=== PATIENT | male | born 1945 | race Caucasian/White ===

== ENCOUNTER 2017-01-11 19:29 | Emergency (ER) | payer MEDICARE ==
--- NOTE | 2017-01-11 20:15 | Emergency Department Record ---
History of Present Illness - General Chief Complaint: Laceration(s) Stated Complaint: LAC ON INSIDE OF R ARM Time Seen by Provider: 01/11/17 20:15 Source: Patient Mode of Arrival: Ambulatory Limitations: No limitations - History of Present Illness Initial Commments: The patient cut his R arm about 2 hours ago with an electrical saw. He denies any numbness or tingling or hand weakness. His Td is not UTD. Onset/Timin -: Hour(s) Place: Outdoors Context: Accidental Associated Symptoms: None Treatments Prior to Arrival: Bandage - Related Data Patient Tetanus UTD (within 5 yrs): No Home Medications Medication Instructions Recorded Confirmed Last Taken Pramipexole Di-HCl [Mirapex] 0.5 mg PO QHS tab 10/02/15 01/11/17 01/11/17 Tamsulosin HCl [Flomax] 0.4 mg PO QHS 10/02/15 01/11/17 01/11/17 Previous Rx's Medication Instructions Recorded Cephalexin [Keflex] 500 mg PO QID #28 cap 01/11/17 Hydrocodone/Acetaminophen [[place] 1 - 2 each PO QID #10 tablet 01/11/17 5-325 Tablet] Allergies Allergy/AdvReac Type Severity Reaction Status Date / Time No Known Drug Allergies Allergy Verified 01/11/17 20:09 Travel Screening - Travel/Exposure Within Last 30 Days Have you traveled within the last 30 days?: No - Travel Symptoms Symptom Screening: None Past Medical History - SOCIAL HISTORY Smoking Status: Never smoker - RESPIRATORY Hx Respiratory Disorders: Yes Hx Bronchitis: Yes Hx Sleep Apnea: Yes Hx of CPAP: Yes (uses on and off) - CARDIOVASCULAR Hx Cardio Disorders: No - NEURO Hx Neuro Disorders: No - GI Hx GI Disorders: Yes Hx Abdominal Pain: Yes (at times associated with hernia) - Hx Genitourinary Disorders: Yes Hx Bladder Problem: Yes (freq urination) Hx Prostate Problems: Yes (enlarged prostate) - ENDOCRINE Hx Endocrine Disorders: No - MUSCULOSKELETAL Hx Musculoskeletal Disorders: Yes Hx Arthritis: Yes - PSYCH Hx Psych Problems: No - HEMATOLOGY/ONCOLOGY Hx Hematology/Oncology Disorders: No Family Medical History Any Significant Family History?: Yes Hx Cancer: Mother Hx Diabetes: Mother Hx HTN: Father Physical Exam - General General Appearance: Alert, Cooperative, No acute distress - Head Head exam: Atraumatic, Normocephalic, Normal inspection - Eye Eye exam: Normal appearance, PERRL - Extremities Extremities exam: Other (The R arm and hand are NVI with normal pulses, sensation, and motor function.). negative: Normal inspection (There is a 12.5 cm lac to the distal R arm just above the elbow lat epicondyle. The lac appears to be cut obliquely and is not down to the muscle.) Image of Full Body: 1 - 12.5 cm lac. Course Vital Signs 01/11/17 20:10 Temperature 98.6 F Pulse Rate 78 Respiratory 16 Rate Blood Pressure 165/97 Pulse Ox 96 - Reevaluation(s) Reevaluation #1: Procedure note: The R arm lac was anesth. with 10 CC's [place] 1% with Epi. The wound edges were debrided extensively and the wound did have multiple shirt fibers removed. The wound was explored and was deep but superficially cut obliquely and not down to muscle, tendon, or bone. The lac was then lavaged with sterile saline copiously and explored. No more FB's were seen. The lac was then closed with 15 3.0 Prolene sutures. 01/11/17 21:37 01/11/17 21:45 01/11/17 21:46 Reevaluation #2: I did discuss the issues with the patient. Any wound of this size with the extent of the contamination is fairly infection prone. He is to watch for signs of infection and return to the ER for any problems. 01/11/17 21:45 Disposition Disposition: Discharge Clinical Impression: Laceration of arm Qualifiers: Encounter type: initial encounter Laterality: right Qualified Code(s): S41.111A - Laceration without foreign body of right upper arm, initial encounter Disposition: Home, Self-Care Condition: (1) Good Instructions: Laceration (ED) Additional Instructions: Keep dry for 2 days then no soaking. Watch for signs of infection. Take Tylenol or Motrin for pain and may also use [place]. Take the Keflex for 7 days. Have the sutures removed in 14 days. Prescriptions: Cephalexin [Keflex] 500 mg PO QID #28 cap Hydrocodone/Acetaminophen [[place] 5-325 Tablet] 1 - 2 each PO QID #10 tablet Forms: Patient Portal Access Time of Disposition: 21:27
[2017-01-11] MEDS ORDERED: CEPHALEXIN 500 MG CAPSULE PO STA (20:18)
[2017-01-11] MEDS ORDERED: Diph,Pert(Acell),Tet Vac 0.5 ML SYR IM ONE (20:18)
[2017-01-11] MEDS ORDERED: HYDROCODONE/APAP 5/325MG TABLET PO ONE ×2 (20:29→21:25)
== END 2017-01-11 21:44 | disposition home or self-care (01) ==
LOC: ER 19:29
DX: S41.121A Laceration with foreign body of right upper arm, initial encounter (principal); W31.2XXA Contact with powered woodworking and forming machines, initial encounter; Y92.89 Other specified places as the place of occurrence of the external cause
CPT/HCPCS: 12034; 90715; 96372; 99284

== ENCOUNTER 2017-01-26 08:22 | Emergency (ER) | payer MEDICARE ==
--- NOTE | 2017-01-26 08:33 | Emergency Department Record ---
History of Present Illness - General Chief Complaint: Suture removal Stated Complaint: SUTURE REMOVAL Time Seen by Provider: 01/26/17 08:32 Source: Patient Mode of arrival: Ambulatory Limitations: No limitations - History of Present Illness Initial Comments: 71 yo male presents to ED for evaluation for suture removal from healing laceration repair to the the right upper extremity. Patient reports that the injury occurred 15 days ago, denies fevers, chills, redness, or drainage from the wound. Patient reports that his wound has been healing well. MD Complaint: Suture/staple removal Onset/Timin -: Week(s) Initial Visit For: Laceration Returns Today for: Staple/stitch removal Symptoms Since Prior Visit: No new symptoms Associated Symptoms: None - Related Data Home Medications Medication Instructions Recorded Confirmed Last Taken Pramipexole Di-HCl [Mirapex] 0.5 mg PO QHS tab 10/02/15 01/26/17 01/25/17 Tamsulosin HCl [Flomax] 0.4 mg PO QHS 10/02/15 01/26/17 01/25/17 Previous Rx's Medication Instructions Recorded Hydrocodone/Acetaminophen [[place] 1 - 2 each PO QID #10 tablet 01/11/17 5-325 Tablet] Allergies Allergy/AdvReac Type Severity Reaction Status Date / Time No Known Drug Allergies Allergy Verified 01/11/17 20:09 Travel Screening - Travel/Exposure Within Last 30 Days Have you traveled within the last 30 days?: No - Travel/Exposure Within Last Year Have you traveled outside the [place] in the last year?: No - Additonal Travel Details Have you been exposed to anyone with a communicable illness?: No - Travel Symptoms Symptom Screening: None Review of Systems Constitutional: Denies: Chills, Fever, Malaise, Night sweats Eyes: Denies: Eye discharge, Eye pain ENT: Denies: Congestion, Ear pain, Epistaxis Respiratory: Denies: Cough, Dyspnea Cardiovascular: Denies: Chest pain, Dyspnea on exertion Endocrine: Denies: Fatigue, Heat or cold intolerance Gastrointestinal: Denies: Abdominal pain, Nausea, Vomiting Genitourinary: Denies: Incontinence, Retention Musculoskeletal: Denies: Arthralgia, Back pain, Gout, Joint swelling Skin: Denies: Bruising, Change in color Neurological: Denies: Abnormal gait, Confusion, Headache, Seizure Psychiatric: Denies: Anxiety Hematological/Lymphatic: Denies: Anemia, Blood Clots Past Medical History - SOCIAL HISTORY Smoking Status: Never smoker - RESPIRATORY Hx Respiratory Disorders: Yes Hx Bronchitis: Yes Hx Sleep Apnea: Yes Hx of CPAP: Yes (uses on and off) - CARDIOVASCULAR Hx Cardio Disorders: No - NEURO Hx Neuro Disorders: No - GI Hx GI Disorders: Yes Hx Abdominal Pain: Yes (at times associated with hernia) - Hx Genitourinary Disorders: Yes Hx Bladder Problem: Yes (freq urination) Hx Prostate Problems: Yes (enlarged prostate) - ENDOCRINE Hx Endocrine Disorders: No - MUSCULOSKELETAL Hx Musculoskeletal Disorders: Yes Hx Arthritis: Yes - PSYCH Hx Psych Problems: No - HEMATOLOGY/ONCOLOGY Hx Hematology/Oncology Disorders: No Family Medical History Any Significant Family History?: No Hx Cancer: Mother Hx Diabetes: Mother Hx HTN: Father Physical Exam - General General Appearance: Alert, Oriented x3, Cooperative, No acute distress Limitations: No limitations - Head Head exam: Atraumatic, Normocephalic, Normal inspection Head exam detail: negative: Abrasion, Contusion, Brush's sign, General tenderness, Hematoma, Laceration - Eye Eye exam: Normal appearance. negative: Conjunctival injection, Periorbital swelling, Periorbital tenderness, Scleral icterus - ENT Ear exam: negative: Auricular hematoma, Auricular trauma Nasal Exam: negative: Active bleeding, Discharge, Dried blood, Foreign body Mouth exam: negative: Drooling, Laceration, Muffled voice, Tongue elevation - Neck Neck exam: Normal inspection. negative: Meningismus, Tenderness - Respiratory Respiratory exam: Normal lung sounds bilaterally. negative: Rales, Respiratory distress, Rhonchi, Stridor - Cardiovascular Cardiovascular Exam: Regular rate, Normal rhythm, Normal heart sounds - GI/Abdominal GI/Abdominal exam: Soft. negative: Rebound, Rigid, Tenderness - Rectal Rectal exam: Deferred - exam: Deferred - Extremities Extremities exam: Other (healing laceration to the right distal arm to extending to the proximal forearm, no signs of infection on examination). negative: Calf tenderness, Pedal edema, Tenderness - Back Back exam: Denies: CVA tenderness (R), CVA tenderness (L) - Neurological Neurological exam: Alert, Normal gait, Oriented X3 - Psychiatric Psychiatric exam: Normal affect, Normal mood - Skin Skin exam: Normal color. negative: Abrasion Type of lesion: negative: abrasion Course Vital Signs 05/23/17 08:24 Temperature 97.9 F Pulse Rate 60 Respiratory 16 Rate Blood Pressure 149/72 Pulse Ox 98 - Reevaluation(s) Reevaluation #1: 01/26/17 08:37 Wound was evaluated, no evidence for infection on examination. (4) sutures distally and (4) sutures proximally were removed as the wound appears well healed to this area. The midsection of the wound however has not had sufficient time to heal completed, therefore (7) sutures are being left in place with instructions to return in 5-7 days for removal. Patient agrees with plan as discussed and appears stable for discharge at this time. Disposition Disposition: Discharge Clinical Impression: Visit for suture removal Disposition: Home, Self-Care Condition: (2) Stable Instructions: Suture Removal (ED) Additional Instructions: Return to ED if your symptoms worsen or if you have any concerns. Return to ED in 5-7 days for the remainder of your sutures to be removed. Forms: Patient Portal Access Time of Disposition: 08:33
== END 2017-01-26 08:38 | disposition home or self-care (01) ==
LOC: ER 08:22
DX: Z48.02 Encounter for removal of sutures (principal)

== ENCOUNTER 2017-02-02 08:34 | Emergency (ER) | payer MEDICARE ==
--- NOTE | 2017-02-02 08:42 | Emergency Department Record ---
History of Present Illness - General Chief Complaint: Suture removal Stated Complaint: SUTURE REMOVAL Time Seen by Provider: 02/02/17 08:41 Source: Patient Mode of arrival: Ambulatory Limitations: No limitations - History of Present Illness Initial Comments: 71 yo male returns to ED for further removal of remaining sutures which have now been present for 3 weeks. Patient was seen for 2 weeks following injury, 8 sutures were removed at that time, however seven were left [address] due to the risk of wound dehiscence. Patient denies drainage from the wound, fevers, chills, or worsening of his symptoms. MD Complaint: Suture/staple removal Onset/Timin -: Week(s) Initial Visit For: Laceration Returns Today for: Staple/stitch removal Symptoms Since Prior Visit: No new symptoms Associated Symptoms: None - Related Data Home Medications Medication Instructions Recorded Confirmed Last Taken Pramipexole Di-HCl [Mirapex] 0.5 mg PO QHS tab 10/02/15 02/02/17 02/01/17 Tamsulosin HCl [Flomax] 0.4 mg PO QHS 10/02/15 02/02/17 02/02/17 Cholecalciferol (Vitamin D3) 1 tab PO DAILY 02/02/17 02/02/17 02/02/17 [Vitamin D3] Previous Rx's Medication Instructions Recorded Hydrocodone/Acetaminophen [[place] 1 - 2 each PO QID #10 tablet 01/11/17 5-325 Tablet] Allergies Allergy/AdvReac Type Severity Reaction Status Date / Time No Known Drug Allergies Allergy Verified 02/02/17 08:37 Review of Systems Constitutional: Denies: Chills, Fever, Malaise, Night sweats Eyes: Denies: Eye discharge, Eye pain ENT: Denies: Congestion, Ear pain, Epistaxis Respiratory: Denies: Cough, Dyspnea Cardiovascular: Denies: Chest pain, Dyspnea on exertion Endocrine: Denies: Fatigue, Heat or cold intolerance Gastrointestinal: Denies: Abdominal pain, Nausea, Vomiting Genitourinary: Denies: Incontinence, Retention Musculoskeletal: Denies: Arthralgia, Back pain, Gout, Joint swelling Skin: Denies: Bruising, Change in color Neurological: Denies: Abnormal gait, Confusion, Headache, Seizure Psychiatric: Denies: Anxiety Hematological/Lymphatic: Denies: Anemia, Blood Clots Past Medical History - SOCIAL HISTORY Smoking Status: Never smoker - RESPIRATORY Hx Respiratory Disorders: Yes Hx Bronchitis: Yes Hx Sleep Apnea: Yes Hx of CPAP: Yes (uses on and off) - CARDIOVASCULAR Hx Cardio Disorders: No - NEURO Hx Neuro Disorders: No - GI Hx GI Disorders: Yes Hx Abdominal Pain: Yes (at times associated with hernia) - Hx Genitourinary Disorders: Yes Hx Bladder Problem: Yes (freq urination) Hx Prostate Problems: Yes (enlarged prostate) - ENDOCRINE Hx Endocrine Disorders: No - MUSCULOSKELETAL Hx Musculoskeletal Disorders: Yes Hx Arthritis: Yes - PSYCH Hx Psych Problems: No - HEMATOLOGY/ONCOLOGY Hx Hematology/Oncology Disorders: No Family Medical History Hx Cancer: Mother Hx Diabetes: Mother Hx HTN: Father Physical Exam - General General Appearance: Alert, Oriented x3, Cooperative, No acute distress Limitations: No limitations - Head Head exam: Atraumatic, Normocephalic, Normal inspection Head exam detail: negative: Abrasion, Contusion, Brush's sign, General tenderness, Hematoma, Laceration - Eye Eye exam: Normal appearance. negative: Conjunctival injection, Periorbital swelling, Periorbital tenderness, Scleral icterus - ENT Ear exam: negative: Auricular hematoma, Auricular trauma Nasal Exam: negative: Active bleeding, Discharge, Dried blood, Foreign body Mouth exam: negative: Drooling, Laceration, Muffled voice, Tongue elevation - Neck Neck exam: Normal inspection. negative: Meningismus, Tenderness - Respiratory Respiratory exam: Normal lung sounds bilaterally. negative: Rales, Respiratory distress, Rhonchi, Stridor - Cardiovascular Cardiovascular Exam: Regular rate, Normal rhythm, Normal heart sounds - GI/Abdominal GI/Abdominal exam: Soft. negative: Rebound, Rigid, Tenderness - Rectal Rectal exam: Deferred - exam: Deferred - Extremities Extremities exam: Other (Well-healed laceration to the right forearm). negative : Calf tenderness, Pedal edema, Tenderness - Back Back exam: Denies: CVA tenderness (R), CVA tenderness (L) - Neurological Neurological exam: Alert, Normal gait, Oriented X3 - Psychiatric Psychiatric exam: Normal affect, Normal mood - Skin Skin exam: Normal color. negative: Abrasion Type of lesion: negative: abrasion Course - Reevaluation(s) Reevaluation #1: 02/02/17 08:46 Procedure Note: remaining (7) sutures were removed from right UE wound without complications. Steri-strips applied to the center of the wound to prevent early dehiscence of the wound. Patient tolerated the procedure well without complications. Disposition Disposition: Discharge Clinical Impression: Visit for suture removal Disposition: Home, Self-Care Condition: (2) Stable Instructions: Stitches Removal (ED) Additional Instructions: Return to ED if your symptoms worsen or if you have any concerns. Follow-up with your family doctor in 1 week as needed. Forms: Patient Portal Access Time of Disposition: 08:42
== END 2017-02-02 08:50 | disposition home or self-care (01) ==
LOC: ER 08:34
DX: Z48.02 Encounter for removal of sutures (principal)

== ENCOUNTER 2017-03-26 19:38 | Emergency (ER) | payer MEDICARE ==
--- NOTE | 2017-03-26 20:13 | Emergency Department Record ---
History of Present Illness - General Chief Complaint: General Stated Complaint: RT HAND INJURY Time Seen by Provider: 03/26/17 20:02 Source: Patient Mode of Arrival: Ambulatory Limitations: No limitations - History of Present Illness Initial Comments: 71 yo male presents to ED for evaluation of injury to the right hand 1-hour [employer]. Patient reports that his hand was caught between a loader operator and wall resulting in crush-type injury. Patient reports FROM to the hand on examination , denies numbness or tingling, reports only a dull ache on exam. Patient denies other injury, and denies health problems at his baseline. Complaint: Injury to:: Right Onset/Timin -: Hour(s) Other Extremity Injury: Wrist: Right, Hand: Right Other Injuries: RLE Handedness: Right Place: Home Improves With: None Worsens With: Movement of extremity Context: Crush Associated Symptoms: Denies other symptoms - Related Data Home Medications Medication Instructions Recorded Confirmed Last Taken Pramipexole Di-HCl [Mirapex] 0.5 mg PO QHS tab 10/02/15 03/26/17 03/25/17 Tamsulosin HCl [Flomax] 0.4 mg PO QHS 10/02/15 03/26/17 03/25/17 Cholecalciferol (Vitamin D3) 1 tab PO DAILY 02/02/17 03/26/17 03/25/17 [Vitamin D3] Allergies Allergy/AdvReac Type Severity Reaction Status Date / Time No Known Drug Allergies Allergy Verified 02/02/17 08:37 Travel Screening - Travel/Exposure Within Last 30 Days Have you traveled within the last 30 days?: No - Travel/Exposure Within Last Year Have you traveled outside the [place] in the last year?: No - Additonal Travel Details Have you been exposed to anyone with a communicable illness?: No - Travel Symptoms Symptom Screening: None Review of Systems Constitutional: Denies: Chills, Fever, Malaise, Night sweats Eyes: Denies: Eye discharge, Eye pain ENT: Denies: Congestion, Ear pain, Epistaxis Respiratory: Denies: Cough, Dyspnea Cardiovascular: Denies: Chest pain, Dyspnea on exertion Endocrine: Denies: Fatigue, Heat or cold intolerance Gastrointestinal: Denies: Abdominal pain, Nausea, Vomiting Genitourinary: Denies: Incontinence, Retention Musculoskeletal: Reports: Arthralgia. Denies: Back pain, Gout, Joint swelling Skin: Denies: Bruising, Change in color Neurological: Denies: Abnormal gait, Confusion, Headache, Seizure Psychiatric: Denies: Anxiety Hematological/Lymphatic: Denies: Anemia, Blood Clots Past Medical History - SOCIAL HISTORY Smoking Status: Never smoker Alcohol Use: None Drug Use: None - RESPIRATORY Hx Respiratory Disorders: Yes Hx Bronchitis: Yes Hx Sleep Apnea: Yes Hx of CPAP: Yes (uses on and off) - CARDIOVASCULAR Hx Cardio Disorders: No - NEURO Hx Neuro Disorders: No - GI Hx GI Disorders: Yes Hx Abdominal Pain: Yes (at times associated with hernia) - Hx Genitourinary Disorders: Yes Hx Bladder Problem: Yes (freq urination) Hx Prostate Problems: Yes (enlarged prostate) - ENDOCRINE Hx Endocrine Disorders: No - MUSCULOSKELETAL Hx Musculoskeletal Disorders: Yes Hx Arthritis: Yes - PSYCH Hx Psych Problems: No - HEMATOLOGY/ONCOLOGY Hx Hematology/Oncology Disorders: No Family Medical History Any Significant Family History?: No Hx Cancer: Mother Hx Diabetes: Mother Hx HTN: Father Physical Exam - General General Appearance: Alert, Oriented x3, Cooperative, Mild distress Limitations: No limitations - Head Head exam: Atraumatic, Normocephalic, Normal inspection Head exam detail: negative: Abrasion, Contusion, Brush's sign, General tenderness, Hematoma, Laceration - Eye Eye exam: Normal appearance. negative: Conjunctival injection, Periorbital swelling, Periorbital tenderness, Scleral icterus - ENT Ear exam: negative: Auricular hematoma, Auricular trauma Nasal Exam: negative: Active bleeding, Discharge, Dried blood, Foreign body Mouth exam: negative: Drooling, Laceration, Muffled voice, Tongue elevation - Neck Neck exam: Normal inspection. negative: Meningismus, Tenderness - Respiratory Respiratory exam: Normal lung sounds bilaterally. negative: Rales, Respiratory distress, Rhonchi, Stridor - Cardiovascular Cardiovascular Exam: Regular rate, Normal rhythm, Normal heart sounds Peripheral Pulses: 3+: Radial (R) - GI/Abdominal GI/Abdominal exam: Soft. negative: Rebound, Rigid, Tenderness - Rectal Rectal exam: Deferred - exam: Deferred - Extremities Extremities exam: Full ROM, Tenderness, Other (Mild TTP to the hand dorsally, FROM on examination, no obvious fracture or dislocation on examination). negative: Calf tenderness, Pedal edema - Back Back exam: Denies: CVA tenderness (R), CVA tenderness (L) - Neurological Neurological exam: Alert, Normal gait, Oriented X3 - Psychiatric Psychiatric exam: Normal affect, Normal mood - Skin Skin exam: Normal color. negative: Abrasion Type of lesion: negative: abrasion Course Vital Signs 03/26/17 03/26/17 19:43 19:52 Temperature 97.8 F 97.8 F Pulse Rate [ 75 Pulse Ox Probe] Respiratory 22 20 Rate Blood Pressure 176/98 [Left Arm] Pulse Ox 95 - Reevaluation(s) Reevaluation #1: 03/26/17 20:53 Right hand: No acute fracture Right wrist: No acute fracture present Patient was updated on all results, will administer a Velcro wrist splint for support of the hand. Patient agrees with the plan of care as discussed and appears stable for discharge at this time. Disposition Disposition: Discharge Clinical Impression: Hand contusion Qualifiers: Encounter type: initial encounter Laterality: right Qualified Code(s): S60.221A - Contusion of right hand, initial encounter Disposition: Home, Self-Care Condition: (2) Stable Instructions: Contusion in Adults (ED) Additional Instructions: Return to ED if your symptoms worsen or if you have any concerns. Wrist splint as directed for support. Follow-up with your family doctor in 5-7 days for further evaluation of your wrist injury. Ibuprofen as needed for pain symptoms. Forms: Patient Portal Access Time of Disposition: 20:56 Quality - Quality Measures Quality Measures: N/A - Blood Pressure Screening Blood Pressure Classification: Hypertensive Reading Systolic Measurement: 167 Diastolic Measurement: 91 Screening for High Blood Pressure: < First Hypertensive BP, F/U Documented > [ [id number]] First Hypertensive Follow-up Interventions: Referral to alternative/primary care provider.
--- NOTE | 2017-03-29 10:30 | RADIOLOGY REPORT ---
EXAM: RIGHT WRIST HISTORY: INJURY. TECHNIQUE: Four views of the right wrist were performed. FINDINGS: No evidence of acute fracture. Remote fracture deformity of the ulnar styloid. IMPRESSION: 1. NO EVIDENCE OF ACUTE FRACTURE. 2. REMOTE FRACTURE DEFORMITY OF THE ULNAR STYLOID. JOB NUMBER: [id number] MTDD
--- NOTE | 2017-03-29 10:32 | RADIOLOGY REPORT ---
EXAM: RIGHT HAND HISTORY: INJURY. TECHNIQUE: Three views of the right hand were performed. FINDINGS: No evidence of acute fracture or dislocation. There is remote fracture deformity of the ulnar styloid. IMPRESSION: REMOTE ULNAR FRACTURE DEFORMITY OF THE ULNAR STYLOID. THE REMAINDER OF THE EXAMINATION IS UNREMARKABLE. JOB NUMBER: [id number] MTDD
== END 2017-03-26 21:19 | disposition home or self-care (01) ==
LOC: ER 19:38
DX: S60.221A Contusion of right hand, initial encounter (principal); M25.531 Pain in right wrist; W23.0XXA Caught, crushed, jammed, or pinched between moving objects, initial encounter; Y92.009 Unspecified place in unspecified non-institutional (private) residence as the place of occurrence of the external cause
CPT/HCPCS: 99283

== ENCOUNTER 2018-07-22 12:24 | Emergency (ER) | payer MEDICARE ==
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
[2018-07-22 12:44] LABS: BASO % 0.6 % (0-6); EOS % 5.7 % (0-6); GRAN % 49.7 % (47-80); HEMATOCRIT 42.6 % (42.0-52.0); HEMOGLOBIN 14.2 gm/dl (14.0-18.0); LYMPH % 36.3 % (16-45); MEAN CELL VOLUME 90.8 fl (81-97); MEAN CORPUSCULAR HEMOGLOBIN 30.3 pg (27-33); MEAN CORPUSCULAR HGB CONC 33.3 g/dl (32-36); MEAN PLATELET VOLUME 10.2 fl (7.4-10.4); MONO % 7.7 % (0-9); PLATELET COUNT 272 K/uL (130-400); RED BLOOD COUNT 4.69 M/uL (4.40-5.70); RED CELL DISTRIBUTION WIDTH 12.8 % (11.5-14.5); WHITE BLOOD COUNT W/O DIFF 5.4 K/uL (4.2-12.2)
[2018-07-22 12:55] LABS: BLOOD UREA NITROGEN 24 mg/dL (8-23); EST GLOMERULAR FILTRATION RATE > 60 mL/min
[2018-07-22 12:56] LABS: TOTAL PROTEIN 7.2 g/dL (6.6-8.7)
[2018-07-22 12:58] LABS: GLUCOSE,RANDOM 92 mg/dL (74-109); PARTIAL THROMBOPLASTIN TIME 26.8 SECONDS (24.5-39.1); PROTHROMBIN TIME (PATIENT) 10.1 SECONDS (9.5-12.1)
[2018-07-22 13:00] LABS: ALBUMIN 4.3 g/dL (4.0-5.0); ALT/SGPT 15 U/L (<41); AST/SGOT 17 U/L (10.0-50.0)
[2018-07-22 13:01] LABS: ALB/GLOB RATIO 1.5 (1.1-1.8); ALKALINE PHOSPHATASE 48 U/L (40-129)
[2018-07-22 13:11] LABS: THYROID STIMULATING HORMONE 3.04 uIU/mL (0.270-4.20)
[2018-07-22] MEDS ORDERED: ASPIRIN 81 MG CHEWABLE TABLET PO ONE (14:27)
--- NOTE | 2018-07-23 21:18 | CT SCAN REPORT ---
EXAM: CT SCAN HEAD WO CONTRAST HISTORY: WEAKNESS, SLURRED SPEECH. TECHNIQUE: Axial CT scan of the head performed without IV contrast. COMPARISON: None. FINDINGS: No definite acute intracranial hemorrhage identified. No definite acute infarct or intracranial mass lesion is seen. No focal mass effect or midline shift evident. Mild generalized atrophy. Moderate membrane thickening in the ethmoids bilaterally. IMPRESSION: 1. MILD GENERALIZED ATROPHY. 2. NO DEFINITE ACUTE INTRACRANIAL HEMORRHAGE OR FOCAL MASS EFFECT IDENTIFIED. 3. MEMBRANE THICKENING IN THE ETHMOIDS. JOB NUMBER: [id number] [facility]
== END 2018-07-22 15:23 | disposition short-term general hospital (02) ==
LOC: ER 12:24
DX: G45.9 Transient cerebral ischemic attack, unspecified (principal); R53.1 Weakness; R47.81 Slurred speech; I10 Essential (primary) hypertension
CPT/HCPCS: 70450; 80053; 84443; 84484; 85025; 85610; 85730; 93005; 93010; 99285

== ENCOUNTER 2018-12-22 17:27 | Emergency (ER) | payer MEDICARE ==
[2018-12-22] MEDS ORDERED: IBUPROFEN 600 MG TABLET PO ONE (17:57)
--- NOTE | 2018-12-22 18:03 | Emergency Department Record ---
History of Present Illness - General Chief complaint: Lower Extremity Pain Stated complaint: LEFT KNEE PAIN Time Seen by Provider: 12/22/18 17:51 Source: Patient Mode of Arrival: Ambulatory Limitations: No limitations - History of Present Illness Initial comments: 73 yo male presents to ED for evaluation of left knee pain that occurred approximately 1.5 hours ago. Patient reports that he was walking when he suddenly felt a "pop" associated with pain to the left medial knee, reports pain with weight bearing. Patient reports a history of knee problems, has seen Dr. Ybarra previously but has been delaying knee replacement for his chronic arthritis. Patient reports taking (3) Tylenol tablets prior to arrival that has not helped his pain symptoms significantly. MD Complaint: Joint pain Onset/Timin -: Hour(s) Location: Left, Knee History of Same: No Radiation: Proximal, Distal Severity scale (1-10): 10 Quality: Aching Consistency: Constant Improves with: Nothing Worsens with: Weight bearing Associated Symptoms: Denies other symptoms - Related Data Previous Rx's Medication Instructions Recorded Ibuprofen [Motrin 600Mg] 600 mg PO Q6H PRN #30 tablet 12/22/18 Allergies Allergy/AdvReac Type Severity Reaction Status Date / Time No Known Drug Allergies Allergy Verified 12/22/18 17:35 Travel Screening - Travel/Exposure Within Last 30 Days Have you traveled within the last 30 days?: No Review of Systems Constitutional: Denies: Chills, Fever, Malaise, Night sweats Eyes: Denies: Eye discharge, Eye pain ENT: Denies: Congestion, Ear pain, Epistaxis Respiratory: Denies: Cough, Dyspnea Cardiovascular: Denies: Chest pain, Dyspnea on exertion Endocrine: Denies: Fatigue, Heat or cold intolerance Gastrointestinal: Denies: Abdominal pain, Nausea, Vomiting Genitourinary: Denies: Incontinence, Retention Musculoskeletal: Reports: Arthralgia. Denies: Back pain, Gout, Joint swelling Skin: Denies: Bruising, Change in color Neurological: Denies: Abnormal gait, Confusion, Headache Psychiatric: Denies: Anxiety Hematological/Lymphatic: Denies: Anemia, Blood Clots Past Medical History - SOCIAL HISTORY Smoking Status: Never smoker Alcohol Use: None Drug Use: None - RESPIRATORY Hx Respiratory Disorders: Yes Hx Bronchitis: Yes Hx Sleep Apnea: Yes Hx of CPAP: Yes (uses on and off) - CARDIOVASCULAR Hx Cardio Disorders: No - NEURO Hx Neuro Disorders: No Comment:: brain aneurysm - GI Hx GI Disorders: Yes Hx Abdominal Pain: Yes - Hx Genitourinary Disorders: Yes Hx Bladder Problem: Yes Hx Prostate Problems: Yes - ENDOCRINE Hx Endocrine Disorders: No - MUSCULOSKELETAL Hx Musculoskeletal Disorders: Yes Hx Arthritis: Yes - PSYCH Hx Psych Problems: No - HEMATOLOGY/ONCOLOGY Hx Hematology/Oncology Disorders: No Family Medical History Any Significant Family History?: Yes Hx Cancer: Mother Hx Diabetes: Mother Hx HTN: Father Physical Exam - General General Appearance: Alert, Oriented x3, Cooperative, Mild distress Limitations: No limitations - Head Head exam: Atraumatic, Normocephalic, Normal inspection Head exam detail: negative: Abrasion, Contusion, Brush's sign, General tenderness, Hematoma, Laceration - Eye Eye exam: Normal appearance. negative: Conjunctival injection, Periorbital swelling, Periorbital tenderness, Scleral icterus - ENT Ear exam: negative: Auricular hematoma, Auricular trauma Nasal Exam: negative: Active bleeding, Discharge, Dried blood, Foreign body Mouth exam: negative: Drooling, Laceration, Muffled voice, Tongue elevation - Neck Neck exam: Normal inspection. negative: Meningismus, Tenderness - Respiratory Respiratory exam: Normal lung sounds bilaterally. negative: Respiratory distress, Rhonchi, Stridor, Wheezes - Cardiovascular Cardiovascular Exam: Regular rate, Normal rhythm, Normal heart sounds - GI/Abdominal GI/Abdominal exam: Soft. negative: Rigid, Tenderness - Rectal Rectal exam: Deferred - exam: Deferred - Extremities Extremities exam: Tenderness, Other (Mild TTP left medial knee, no effusion present, no warmth or signs of infection, ligaments are stable with anterior/ posterior drawer testing. Arthritic changes to the knees bilaterally. ). negative: Calf tenderness, Pedal edema - Back Back exam: Denies: CVA tenderness (R), CVA tenderness (L) - Neurological Neurological exam: Alert, Oriented X3 - Psychiatric Psychiatric exam: Normal affect, Normal mood - Skin Skin exam: Normal color. negative: Abrasion Type of lesion: negative: abrasion Course Vital Signs 12/22/18 17:31 Temperature 98.0 F Pulse Rate 74 Respiratory 20 Rate Blood Pressure 145/90 Pulse Ox 99 - Reevaluation(s) Reevaluation #1: 12/22/18 18:37 Left knee: Degenerative changes, no acute abnormality identified Patient was updated on all results, will place in knee immobilizer and crutches with instructions to follow-up with Dr. Ybarra in [facility] next week for further evaluation. Patient and his verbalize understanding of all instructions. Disposition Disposition: Discharge Clinical Impression: Strain of knee and leg, left Qualifiers: Encounter type: initial encounter Qualified Code(s): S86.912A - Strain of unspecified muscle(s) and tendon(s) at lower leg level, left leg, initial encounter Disposition: Home, Self-Care Condition: (2) Stable Instructions: Knee Pain (ED) Additional Instructions: Return to ED if your symptoms worsen or if you have any concerns. Ibuprofen as needed for pain. Knee immobilizer/crutches as directed. Follow-up with Dr. Ybarra in the [facility] next week. Prescriptions: Ibuprofen [Motrin 600Mg] 600 mg PO Q6H PRN #30 tablet PRN Reason: Pain - Mild To Moderate (1-7) Referrals: SARWAT YBARRA [DOCTOR OF OSTEOPATH] - [facility] [Provider Group] Forms: Patient Portal Access Time of Disposition: 18:39 Quality - Quality Measures Quality Measures: N/A - Blood Pressure Screening Does Patient Have Any of the Following: No Blood Pressure Classification: Hypertensive Reading Systolic Measurement: 145 Diastolic Measurement: 90 Screening for High Blood Pressure: < First Hypertensive BP, F/U Documented > [ G8950] First Hypertensive Follow-up Interventions: Referral to alternative/primary care provider.
--- NOTE | 2018-12-26 10:05 | RADIOLOGY REPORT ---
EXAM: LEFT KNEE HISTORY: PAIN MEDIAL LEFT KNEE. TECHNIQUE: Four views of the left knee were obtained. Comparison: Left knee 10/29/17. Encounter: Initial. FINDINGS: Degenerative arthritis again seen in left knee with quite prominent joint space narrowing in the lateral aspect of the patellofemoral compartment in particular. There is, however, some mild degenerative arthritis in the medial and lateral compartments as well. There may be a joint effusion present. No fracture or destructive lesion seen and no dislocation evident. IMPRESSION: DEGENERATIVE ARTHRITIS IN THE LEFT KNEE MOST MARKED INVOLVING THE LATERAL ASPECT OF THE PATELLOFEMORAL ARTICULATION. JOB [facility]BER: [id number] [facility]
== END 2018-12-22 18:53 | disposition home or self-care (01) ==
LOC: ER 17:27
DX: S86.912A Strain of unspecified muscle(s) and tendon(s) at lower leg level, left leg, initial encounter (principal); X50.0XXA Overexertion from strenuous movement or load, initial encounter
CPT/HCPCS: 99283

== ENCOUNTER 2019-03-14 17:15 | Emergency (ER) | payer MEDICARE ==
--- NOTE | 2019-03-14 17:35 | Emergency Department Record ---
History of Present Illness - General Chief complaint: Extremity Problem Stated complaint: RT ARM CELLULITIS Time Seen by Provider: 03/14/19 17:28 Source: Patient Mode of Arrival: Wheelchair Limitations: No limitations - History of Present Illness Initial comments: 73 yo male presents with redness, swelling and warmth in the posterior right elbow. 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 The warmth and swelling starting this morning. He has no limitation in elbow ROM. He thinks his last tetanus shot was less than five years ago. MD Complaint: Joint pain Onset/Timin -: Days(s) Location: Right, Elbow History of Same: No Radiation: None Severity scale (1-10): 7 Quality: Aching, Burning Consistency: Constant Improves with: Nothing Worsens with: Palpation, Weight bearing Associated Symptoms: Denies other symptoms - Related Data Home Medications Medication Instructions Recorded Confirmed Last Taken Pravastatin Sodium [Pravachol] 40 mg PO DAILY 03/14/19 03/14/19 Unknown Previous Rx's Medication Instructions Recorded Clindamycin HCl [Cleocin HCl] 300 mg PO QID #28 capsule 03/14/19 Allergies Allergy/AdvReac Type Severity Reaction Status Date / Time No Known Drug Allergies Allergy Unverified 03/14/19 17:02 Travel Screening - Travel/Exposure Within Last 30 Days Have you traveled within the last 30 days?: No Review of Systems Constitutional: Denies: Chills, Fever, Weakness Eyes: Denies: Eye discharge ENT: Denies: Congestion, Throat pain Respiratory: Denies: Cough, Dyspnea, Hemoptysis, Wheezes Cardiovascular: Denies: Chest pain, Syncope Endocrine: Denies: Fatigue Gastrointestinal: Reports: Nausea, Vomiting (in the ED). Denies: Diarrhea Genitourinary: Denies: Dysuria, Frequency, Hematuria Musculoskeletal: Reports: Joint swelling. Denies: Arthralgia, Myalgia Skin: Reports: As per HPI, Change in color Neurological: Denies: Headache Psychiatric: Denies: Anxiety Hematological/Lymphatic: Denies: Easy bleeding, Easy bruising Past Medical History - SOCIAL HISTORY Smoking Status: Never smoker - RESPIRATORY Hx Respiratory Disorders: Yes Hx Bronchitis: Yes Hx Sleep Apnea: Yes Hx of CPAP: Yes (uses on and off) - CARDIOVASCULAR Hx Cardio Disorders: No - NEURO Hx Neuro Disorders: No Comment:: brain aneurysm - GI Hx GI Disorders: Yes Hx Abdominal Pain: Yes - Hx Genitourinary Disorders: Yes Hx Bladder Problem: Yes Hx Prostate Problems: Yes - ENDOCRINE Hx Endocrine Disorders: No - MUSCULOSKELETAL Hx Musculoskeletal Disorders: Yes Hx Arthritis: Yes - PSYCH Hx Psych Problems: No - HEMATOLOGY/ONCOLOGY Hx Hematology/Oncology Disorders: No Family Medical History Any Significant Family History?: Yes Hx Cancer: Mother Hx Diabetes: Mother Hx HTN: Father Physical Exam - General General Appearance: Alert, Oriented x3, Cooperative, No acute distress Limitations: No limitations - Head Head exam: Atraumatic, Normal inspection - Eye Eye exam: Normal appearance. negative: Conjunctival injection - ENT ENT exam: Normal exam Ear exam: Normal external inspection Nasal Exam: Normal inspection Mouth exam: Normal external inspection - Neck Neck exam: Normal inspection - Respiratory Respiratory exam: Normal lung sounds bilaterally. negative: Respiratory distress - Cardiovascular Cardiovascular Exam: Regular rate, Normal rhythm, Normal heart sounds - Extremities Extremities exam: Full ROM, Joint swelling, Tenderness. negative: Normal inspection Image of Full Body: 1 - mild posterior elbow swelling, warmth, soft, full ROM of the elbow without limitation or pain. - Neurological Neurological exam: Alert, Oriented X3 - Skin Skin exam: Erythema Course Vital Signs 03/14/19 17:17 Temperature 99.2 F Pulse Rate 80 Respiratory 20 Rate Blood Pressure 140/74 Pulse Ox 98 - Reevaluation(s) Reevaluation #1: 03/14/19 17:37 Last Tdap was January 2017 03/14/19 17:59 Procedure: Aspiration of likely Bursitis Betadine Prep Lidocaine 2ml local 20 Gauge Needle aspiration easily 10ml of bloody fluid 03/14/19 18:43 The CBC was reviewed WBC is 13 No acute changes on the BMP The onset of the symptoms was just today The patient received a dose of IV Clindamycin He will be discharged with PO Clindamycin, NSAID recommendation I will have the patient return to the ED tomorrow afternoon or see his PCP tomorrow to monitor the progression 03/14/19 19:00 Medical Decision Making - Lab Data Result diagrams: 03/14/19 17:45 03/14/19 17:45 Disposition Disposition: Discharge Clinical Impression: Cellulitis, Bursitis due to bacterial infection Disposition: Home, Self-Care Condition: (1) Good Instructions: Elbow Bursitis (ED) Additional Instructions: Keep the arm clean and dry. Elevate to minimize swelling Take the Clindamycin every 6 hours Call your doctor to be seen tomorrow for a recheck or return to the ED for a recheck You may take Motrin for pain every 6 hours Prescriptions: Clindamycin HCl [Cleocin HCl] 300 mg PO QID #28 capsule Forms: Patient Portal Access Time of Disposition: 18:48 Quality - Quality Measures Quality Measures: N/A - Blood Pressure Screening Does Patient Have Any of the Following: No Blood Pressure Classification: Hypertensive Reading Systolic Measurement: 140 Diastolic Measurement: 74 Screening for High Blood Pressure: < Pre-Hypertensive BP, F/U Documented > [G8950] Pre-Hypertensive Follow-up Interventions: Referral to alternative/primary care provider.
[2019-03-14] MEDS ORDERED: CLINDAMYCIN 600MG/50ML PREMIX 600 MG/50 ML BAG IVPB ONE (17:36)
[2019-03-14] MEDS ORDERED: ONDANSETRON HCL IV 4 MG/2 ML VIAL IVP ONE (17:37)
[2019-03-14 18:06] LABS: ABSOLUTE NEUTROPHIL COUNT 10.55; BASO % 0.2 % (0-6); EOS % 1.2 % (0-6); GRAN % 77.4 % (47-80); HEMATOCRIT 41.1 % (42.0-52.0); LYMPH % 13.9 % (16-45); MEAN CELL VOLUME 90.1 fl (81-97); MEAN CORPUSCULAR HEMOGLOBIN 30.7 pg (27-33); MEAN CORPUSCULAR HGB CONC 34.1 g/dl (32-36); MEAN PLATELET VOLUME 10.2 fl (7.4-10.4); MONO % 7.3 % (0-9); PLATELET COUNT 247 K/uL (130-400); RED BLOOD COUNT 4.56 M/uL (4.40-5.70); RED CELL DISTRIBUTION WIDTH 13.4 % (11.5-14.5); WHITE BLOOD COUNT W/O DIFF 13.6 K/uL (4.2-12.2)
[2019-03-14 18:19] LABS: BLOOD UREA NITROGEN 24 mg/dL (8-23); CREATININE 1.1 mg/dL (0.7-1.2); EST GLOMERULAR FILTRATION RATE > 60 mL/min
[2019-03-14 18:22] LABS: GLUCOSE,RANDOM 105 mg/dL (74-109)
[2019-03-14] MEDS ORDERED: KETOROLAC 30 MG/ML VIAL IVP ONE (18:43)
[2019-03-14] MEDS ORDERED: HYDROCODONE/APAP 5/325MG TABLET PO ONE (19:00)
== END 2019-03-14 19:19 | disposition home or self-care (01) ==
LOC: ER 17:15
DX: L03.113 Cellulitis of right upper limb (principal); M70.31 Other bursitis of elbow, right elbow
CPT/HCPCS: 80048; 85025; 96365; 96375; 99284; J1885

== ENCOUNTER 2019-03-15 15:07 | Inpatient (IN) | payer MEDICARE ==
--- NOTE | 2019-03-15 15:54 | Emergency Department Record ---
History of Present Illness - General Chief Complaint: Wound, check Stated Complaint: WOUND RECHECK Time Seen by Provider: 03/15/19 15:13 Source: Patient, RN notes reviewed Mode of arrival: Ambulatory - History of Present Illness Initial Comments: patient seen last night for olecronen bursitis and fluid withdrawn and cultures are pending. Redness is worse and he was nauseated and vomited before being seen yesterday.Redness is worse and swollen. patient failled outpatient care, Onset/Timin -: Week(s) Initial Visit For: Cellulitis Returns Today for: Cellulitis follow-up Symptoms Since Prior Visit: Improved - Related Data Previous Rx's Medication Instructions Recorded Clindamycin HCl [Cleocin HCl] 300 mg PO QID #28 capsule 03/14/19 Allergies Allergy/AdvReac Type Severity Reaction Status Date / Time No Known Drug Allergies Allergy Verified 03/15/19 15:18 Travel Screening - Travel/Exposure Within Last 30 Days Have you traveled within the last 30 days?: No - Travel/Exposure Within Last Year Have you traveled outside the [place] in the last year?: No - Additonal Travel Details Have you been exposed to anyone with a communicable illness?: No - Travel Symptoms Symptom Screening: None Review of Systems Reviewed: No additional complaints except as noted below Constitutional: Reports: As per HPI. Denies: Chills, Fever, Malaise, Night sweats, Weakness, Weight change Eyes: Reports: As per HPI. Denies: Eye discharge, Eye pain, Photophobia, Vision change ENT: Reports: As per HPI. Denies: Congestion, Dental pain, Ear pain, Epistaxis, Hearing loss, Throat pain Respiratory: Reports: As per HPI. Denies: Cough, Dyspnea, Hemoptysis, Stridor, Wheezes Cardiovascular: Reports: As per HPI. Denies: Arrhythmia, Chest pain, Dyspnea on exertion, Edema, Murmurs, Orthopnea, Palpitations, Paroxysmal nocturnal dyspnea, Rheumatic Fever, Syncope Endocrine: Reports: As per HPI. Denies: Fatigue, Heat or cold intolerance, Polydipsia, Polyuria Gastrointestinal: Reports: As per HPI. Denies: Abdominal pain, Constipation, Diarrhea, Hematemesis, Hematochezia, Melena, Nausea, Vomiting Genitourinary: Reports: As per HPI. Denies: Dysuria, Frequency, Hematuria, Incontinence, Retention, Testicular pain, Testicular mass, Urgency Musculoskeletal: Reports: As per HPI, Other (swelling and redness of the right elbow ). Denies: Arthralgia, Back pain, Gout, Joint swelling, Myalgia, Neck pain Skin: Reports: As per HPI. Denies: Bruising, Change in color, Change in hair/nails, Lesions, Pruritus, Rash Neurological: Reports: As per HPI. Denies: Abnormal gait, Confusion, Headache, Numbness, Paresthesias, Seizure, Tingling, Tremors, Vertigo, Weakness Psychiatric: Reports: As per HPI. Denies: Anxiety, Auditory hallucinations, Depression, Homicidal thoughts, Suicidal thoughts, Visual hallucinations Hematological/Lymphatic: Reports: As per HPI. Denies: Anemia, Blood Clots, Easy bleeding, Easy bruising, Swollen glands Past Medical History - SOCIAL HISTORY Smoking Status: Never smoker Alcohol Use: None Drug Use: None - RESPIRATORY Hx Respiratory Disorders: Yes Hx Bronchitis: Yes Hx Sleep Apnea: Yes Hx of CPAP: Yes (uses on and off) - CARDIOVASCULAR Hx Cardio Disorders: No - NEURO Hx Neuro Disorders: No Comment:: brain aneurysm - GI Hx GI Disorders: Yes Hx Abdominal Pain: Yes - Hx Genitourinary Disorders: Yes Hx Bladder Problem: Yes Hx Prostate Problems: Yes - ENDOCRINE Hx Endocrine Disorders: No - MUSCULOSKELETAL Hx Musculoskeletal Disorders: Yes Hx Arthritis: Yes - PSYCH Hx Psych Problems: No - HEMATOLOGY/ONCOLOGY Hx Hematology/Oncology Disorders: No Family Medical History Any Significant Family History?: Yes Hx Cancer: Mother Hx Diabetes: Mother Hx HTN: Father Physical Exam - General General Appearance: Alert, Oriented x3, Cooperative, No acute distress - Head Head exam: Normal inspection - Eye Eye exam: Normal appearance, PERRL Pupils: Normal accommodation - ENT ENT exam: Normal exam, Mucous membranes moist, Normal external ear exam, Normal orophraynx, TM's normal bilaterally Ear exam: Normal external inspection. negative: External canal tenderness Nasal Exam: Normal inspection. negative: Discharge, Sinus tenderness Mouth exam: Normal external inspection, Tongue normal Teeth exam: Normal inspection. negative: Dental caries Throat exam: Normal inspection. negative: Tonsillar erythema, Tonsillar exudate - Neck Neck exam: Normal inspection, Full ROM. negative: Tenderness - Respiratory Respiratory exam: Normal lung sounds bilaterally. negative: Respiratory distress - Cardiovascular Cardiovascular Exam: Regular rate, Normal rhythm, Normal heart sounds - GI/Abdominal GI/Abdominal exam: Soft, Normal bowel sounds. negative: Tenderness - Rectal Rectal exam: Deferred - exam: Deferred - Extremities Extremities exam: Full ROM, Normal capillary refill, Tenderness, Other (redness of right elbow) - Back Back exam: Reports: Normal inspection, Full ROM. Denies: Muscle spasm, Rash noted, Tenderness - Neurological Neurological exam: Alert, Normal gait, Oriented X3, Reflexes normal - Psychiatric Psychiatric exam: Normal affect, Normal mood - Skin Skin exam: Dry, Intact, Normal color, Warm Course Vital Signs 03/15/19 15:19 Temperature 98.4 F Pulse Rate 72 Respiratory 16 Rate Blood Pressure 139/73 Pulse Ox 97 - Reevaluation(s) Reevaluation #1: discussed case with Dr Tracey and will admit for IV unasyn and further evaluation 03/15/19 16:27 Medical Decision Making - Lab Data Result diagrams: 03/15/19 16:10 Disposition Clinical Impression: Cellulitis Qualifiers: Site of cellulitis: extremity Site of cellulitis of extremity: upper extremity Laterality: right Qualified Code(s): L03.113 - Cellulitis of right upper limb Decision to Admit: Admit from ER Condition: (2) Stable Forms: Patient Portal Access Quality - Quality Measures Quality Measures: N/A - Blood Pressure Screening Does Patient Have Any of the Following: No, Active Dx of HTN Blood Pressure Classification: Pre-Hypertensive BP Reading Systolic Measurement: 139 Diastolic Measurement: 73 Screening for High Blood Pressure: Patient Exclusion, Hx of HTN [[id number]]
[2019-03-15] MEDS ORDERED: AMPICILLIN SODIUM/SULBACTAM NA 3 G in 0.9 % SODIUM CHLORIDE 100ML 100 ML IVPB ONE (15:57)
[2019-03-15 16:26] LABS: HEMATOCRIT 40.1 % (42.0-52.0); HEMOGLOBIN 13.5 gm/dl (14.0-18.0); MEAN CELL VOLUME 91.1 fl (81-97); MEAN CORPUSCULAR HGB CONC 33.7 g/dl (32-36); MEAN PLATELET VOLUME 10.1 fl (7.4-10.4); PLATELET COUNT 235 K/uL (130-400); RED CELL DISTRIBUTION WIDTH 13.4 % (11.5-14.5)
[2019-03-15 16:33] LABS: MEAN CORPUSCULAR HEMOGLOBIN 30.6 pg (27-33)
[2019-03-15 17:10] LABS: ABSOLUTE NEUTROPHIL COUNT 12.11
[2019-03-15] MEDS ORDERED: AL HYDROX/MAG HYDROX 30ML UD PO PRN (17:18)
[2019-03-15] MEDS ORDERED: AMPICILLIN SODIUM/SULBACTAM NA 3 G in 0.9 % SODIUM CHLORIDE 100ML 100 ML IVPB SCH (17:18)
[2019-03-15] MEDS: TAMSULOSIN HCL 0.4 MG CAP.ER.24H PO SCH (22:25)
[2019-03-15] MEDS: SIMVASTATIN 20 MG TABLET PO SCH (22:25)
[2019-03-15] MEDS: AMPICILLIN SODIUM/SULBACTAM NA 3 G in 0.9 % SODIUM CHLORIDE 100ML 100 ML IVPB SCH (22:28)
[2019-03-15] MEDS: ACETAMINOPHEN 325 MG TAB PO PRN (22:28)
[2019-03-16] MEDS: AMPICILLIN SODIUM/SULBACTAM NA 3 G in 0.9 % SODIUM CHLORIDE 100ML 100 ML IVPB SCH ×4 (05:06→22:26)
--- NOTE | 2019-03-16 06:41 | History & Physical ---
History of Present Illness - Date of Service Date of Service for History & Physical: 03/16/19 - History of Present Illness Admitting Diagnosis: cellulitis of right arm, failed outpatient therapy History of Present Illness: Mr. Hastings is a 73 y/o male here with complaint of right elbow swelling and pain. The patient initially came to [facility] ED on Wednesday and fluid was taken from the elbow he was given IV antibiotics and sent home on oral antibiotics for ce llulitis of the right forearm. The patient states that he scraped himself on the armrest of his tractor and his elbow became red and swollen thereafter. He return yesterday afternoon with his symptoms unresolved and was admitted for failed outpatient antibiotic therapy. Vitals on admission BP 139/73 HR 72 T 98.6 O2 sats % 97 % RA, RR 16 WBCs 15K, CRP 15.1 PCP: Dr. Deo Good Travel Screening - Travel/Exposure Within Last 30 Days Have you traveled within the last 30 days?: No - Travel/Exposure Within Last Year Have you traveled outside the [place] in the last year?: No - Additonal Travel Details Have you been exposed to anyone with a communicable illness?: No - Travel Symptoms Symptom Screening: None Review of Systems Constitutional: Reports: As per HPI. Denies: Chills, Fever, Malaise, Night sweats, Weakness, Weight change Eyes: Reports: As per HPI. Denies: Eye discharge, Eye pain, Photophobia, Vision change ENT: Reports: As per HPI. Denies: Congestion, Dental pain, Ear pain, Epistaxis, Hearing loss, Throat pain Respiratory: Reports: As per HPI. Denies: Cough, Dyspnea, Hemoptysis, Stridor, Wheezes Cardiovascular: Reports: As per HPI. Denies: Arrhythmia, Chest pain, Dyspnea on exertion, Edema, Murmurs, Orthopnea, Palpitations, Paroxysmal nocturnal dyspnea, Rheumatic Fever, Syncope Endocrine: Reports: As per HPI. Denies: Fatigue, Heat or cold intolerance, Polydipsia, Polyuria Gastrointestinal: Reports: As per HPI. Denies: Abdominal pain, Constipation, Diarrhea, Hematemesis, Hematochezia, Melena, Nausea, Vomiting Genitourinary: Reports: As per HPI. Denies: Dysuria, Frequency, Hematuria, Incontinence, Retention, Testicular pain, Testicular mass, Urgency Musculoskeletal: Reports: As per HPI, Other (swelling and redness of the right elbow ). Denies: Arthralgia, Back pain, Gout, Joint swelling, Myalgia, Neck pain Skin: Reports: As per HPI. Denies: Bruising, Change in color, Change in hair/nails, Lesions, Pruritus, Rash Neurological: Reports: As per HPI. Denies: Abnormal gait, Confusion, Headache, Numbness, Paresthesias, Seizure, Tingling, Tremors, Vertigo, Weakness Psychiatric: Reports: As per HPI. Denies: Anxiety, Auditory hallucinations, Depression, Homicidal thoughts, Suicidal thoughts, Visual hallucinations Hematological/Lymphatic: Reports: As per HPI. Denies: Anemia, Blood Clots, Easy bleeding, Easy bruising, Swollen glands Past Medical History - SOCIAL HISTORY Smoking Status: Never smoker Alcohol Use: None Drug Use: None - RESPIRATORY Hx Respiratory Disorders: Yes Hx Bronchitis: Yes Hx Sleep Apnea: Yes Hx of CPAP: Yes (uses on and off) - CARDIOVASCULAR Hx Cardio Disorders: No - NEURO Hx Neuro Disorders: No Comment:: brain aneurysm - GI Hx GI Disorders: Yes Hx Abdominal Pain: Yes - Hx Genitourinary Disorders: Yes Hx Bladder Problem: Yes Hx Prostate Problems: Yes - ENDOCRINE Hx Endocrine Disorders: No - MUSCULOSKELETAL Hx Musculoskeletal Disorders: Yes Hx Arthritis: Yes - PSYCH Hx Psych Problems: No - HEMATOLOGY/ONCOLOGY Hx Hematology/Oncology Disorders: No Family Medical History Any Significant Family History?: Yes Hx Cancer: Mother Hx Diabetes: Mother Hx HTN: Father H&P Meds/Allergies - Allergies Allergies: Allergies Allergy/AdvReac Type Severity Reaction Status Date / Time No Known Drug Allergies Allergy Verified 03/15/19 15:18 - Home Medications Previous Rx's Medication Instructions Recorded Clindamycin HCl [Cleocin HCl] 300 mg PO QID #28 capsule 03/14/19 - Active Medications Active Medications: Current Medications Acetaminophen (Tylenol 325mg) 650 mg PO Q6H PRN PRN Reason: PAIN - MILD(1-4)/FEVER Last Admin: 03/15/19 22:28 Dose: 650 mg Documented by: Al Hydroxide/Mg Hydroxide (Maalox) 30 ml PO Q4H PRN PRN Reason: GI UPSET Enoxaparin Sodium (Lovenox) 40 mg SC DAILY [facility] Hydrochlorothiazide (Hctz 25mg) 25 mg PO DAILY [facility] Ampicillin Sodium/Sulbactam (Sodium 3 g/ Sodium Chloride) 100 mls @ 200 mls/hr IVPB Q6H [facility] Last Admin: 03/16/19 05:06 Dose: 200 mls/hr Documented by: Losartan Potassium (Losartan Potassium) 1 mg PO DAILY [facility] Pramipexole Dihydrochloride (Pramipexole Dihydrochloride) 0.75 mg PO DAILY [facility] Simvastatin (Zocor) 20 mg PO QHS [facility] Last Admin: 03/15/19 22:25 Dose: 20 mg Documented by: Tamsulosin HCl (Flomax) 0.4 mg PO QHS [facility] Last Admin: 03/15/19 22:25 Dose: 0.4 mg Documented by: Physical Exam - Vital Signs Vital Signs: Vital Signs - Last 24 Hrs Temp Pulse Pulse Resp BP BP Pulse Ox 03/16/19 01:18 98.5 F 65 12 138/66 100 03/15/19 21:00 16 03/15/19 17:58 66 20 03/15/19 17:18 99.3 F 66 20 147/73 94 L 03/15/19 17:06 68 16 121/72 97 03/15/19 15:19 98.4 F 72 16 139/73 97 - General General Appearance: Alert, Oriented x3, Cooperative, No acute distress - Head Head exam: Normal inspection - Eye Eye exam: Normal appearance, PERRL Pupils: Normal accommodation - ENT ENT exam: Normal exam, Mucous membranes moist, Normal external ear exam, Normal orophraynx, TM's normal bilaterally Ear exam: Normal external inspection. negative: External canal tenderness Nasal Exam: Normal inspection. negative: Discharge, Sinus tenderness Mouth exam: Normal external inspection, Tongue normal Teeth exam: Normal inspection. negative: Dental caries Throat exam: Normal inspection. negative: Tonsillar erythema, Tonsillar exudate - Neck Neck exam: Normal inspection, Full ROM. negative: Tenderness - Respiratory Respiratory exam: Normal lung sounds bilaterally. negative: Respiratory distress - Cardiovascular Cardiovascular Exam: Regular rate, Normal rhythm, Normal heart sounds Peripheral Pulses: 3+: Radial (R), Radial (L), Dorsalis Pedis (R), Dorsalis Pedis (L) - GI/Abdominal GI/Abdominal exam: Soft, Normal bowel sounds. negative: Tenderness - Rectal Rectal exam: Deferred - exam: Deferred - Extremities Extremities exam: Full ROM, Normal capillary refill, Tenderness, Other (redness of right elbow) Image of Full Body: 1 - erythema, swelling tenderness of the olecronon process - Back Back exam: Reports: Normal inspection, Full ROM. Denies: Muscle spasm, Rash noted, Tenderness - Neurological Neurological exam: Alert, Normal gait, Oriented X3, Reflexes normal - Psychiatric Psychiatric exam: Normal affect, Normal mood - Skin Skin exam: Dry, Intact, Normal color, Warm Results - Labs Result Diagrams: 03/15/19 16:10 Labs Last 24 Hours: Laboratory Results - last 24 hr 03/15/19 03/15/19 16:10 16:10 WBC 15.0 H RBC 4.40 Hgb 13.5 L Hct 40.1 L MCV 91.1 MCH 30.6 MCHC 33.7 RDW 13.4 Plt Count 235 MPV 10.1 Neutrophils % 81.0 H Eosinophils % Not Reportable Basophils % Not Reportable Absolute Neutrophils 12.11 Lymphocytes 14.0 L Monocytes 5.0 C-Reactive Protein 15.12 H VTE H&P Assessment - Risk for VTE Risk for VTE: Yes Risk Level: Moderate Risk Assessment Date: 03/16/19 Risk Assessment Time: 09:29 VTE Orders Placed or Will Be Placed: Yes Plan - Inpatient Certification Inpatient Certification: Admit to inpatient care: Based on my medical assessment, after consideration of patient's risk factors (age, co-morbidities and patient presenting symptoms and acuity), I expect that this patient will remain in the hospital greater than or equal to two midnights and that the services needed warrant inpatient care because: Patient Risk Factors: Cellulitis. I certify that my determination is in accordance with my understanding of Medicare requirements for reasonable and necessary inpatient services. 03/16/19 06:36 - Detailed Diagnosis and Plan (1) Cellulitis of right elbow Current Visit: Yes Status: Acute Base Code: L03.113 - CELLULITIS OF RIGHT UPPER LIMB Comment: 03/16/19: - Swelling, tenderness of the right olecronon process. - WBCs 15K, CRP 15.1 - Failed outpatient treatment with IV/PO Clindamycin. - Changed therapy to Unasyn 3g IV Q6H. Tylenol 650mg for pain/fever. - Wound culture pending. Repeat CBC w/ diff in am. (2) BPH (benign prostatic hyperplasia) Current Visit: Yes Status: Chronic Base Code: N40.0 - BENIGN PROSTATIC HYPERPLASIA WITHOUT LOWER URINRY TRACT SYMP Comment: 03/16/19: - Resume Flomax 0.4mg QD. (3) HTN (hypertension) Current Visit: Yes Status: Chronic Qualifiers: Hypertension type: essential hypertension Qualified Code(s): I10 - Essential (primary) hypertension Base Code: I10 - ESSENTIAL (PRIMARY) HYPERTENSION Comment: 03/16/19: - Well controlled. - Resume HCTZ 25mg, Losartan 00mg QD. (4) RLS (restless legs syndrome) Current Visit: Yes Status: Acute Base Code: G25.81 - RESTLESS LEGS SYNDROME Comment: 03/16/19: - Resume Pramipexole 0.75mg QHS. (5) DVT prophylaxis Current Visit: Yes Status: Acute Base Code: Z29.9 - ENCOUNTER FOR PROPHYLACTIC MEASURES, UNSPECIFIED Comment: 03/16/19: - Lovenox 40mg sq daily. (6) Patient is full code Current Visit: Yes Status: Acute Base Code: Z78.9 - OTHER SPECIFIED HEALTH STATUS Comment: 03/16/19: - The patient is full code.
[2019-03-16] MEDS ORDERED: LOSARTAN POTASSIUM 100 MG TABLET PO SCH ×3 (10:00→22:00)
[2019-03-16] MEDS ORDERED: HYDROCHLOROTHIAZIDE 25 MG TABLET PO SCH ×2 (10:00→22:00)
[2019-03-16] MEDS ORDERED: PRAMIPEXOLE DI-HCL 0.25 MG TABLET PO SCH ×2 (10:00→22:00)
[2019-03-16] MEDS: ENOXAPARIN 40 MG/0.4 ML SYR SC SCH (11:01)
[2019-03-16] MEDS: TAMSULOSIN HCL 0.4 MG CAP.ER.24H PO SCH (21:59)
[2019-03-16] MEDS: SIMVASTATIN 20 MG TABLET PO SCH (22:00)
[2019-03-16] MEDS: ACETAMINOPHEN 325 MG TAB PO PRN (22:03)
[2019-03-17] MEDS: AMPICILLIN SODIUM/SULBACTAM NA 3 G in 0.9 % SODIUM CHLORIDE 100ML 100 ML IVPB SCH (05:36)
[2019-03-17 06:36] LABS: ABSOLUTE NEUTROPHIL COUNT 6.95; BASO % 0.3 % (0-6); EOS % 1.6 % (0-6); GRAN % 69.3 % (47-80); HEMATOCRIT 38.9 % (42.0-52.0); LYMPH % 20.5 % (16-45); MEAN CELL VOLUME 90.5 fl (81-97); MEAN CORPUSCULAR HEMOGLOBIN 30.2 pg (27-33); MEAN CORPUSCULAR HGB CONC 33.4 g/dl (32-36); MEAN PLATELET VOLUME 10.3 fl (7.4-10.4); MONO % 8.3 % (0-9); PLATELET COUNT 231 K/uL (130-400); RED CELL DISTRIBUTION WIDTH 13.1 % (11.5-14.5)
[2019-03-17] MEDS ORDERED: DOXYCYCLINE HYCLATE 100 MG CAPSULE PO SCH (10:00)
--- NOTE | 2019-03-17 10:00 | Physician Progress Note ---
Subjective - Date Date of Physician Progress Note: 03/17/19 Objective - Vital Signs Vital Signs: Vital Signs - Last 24 Hrs Temp Pulse Resp BP Pulse Ox 03/17/19 08:08 20 03/17/19 07:25 98.8 F 69 18 129/70 96 03/16/19 23:42 98.8 F 72 18 120/56 94 L 03/16/19 17:00 99.8 F H 71 16 122/70 99 - General General Appearance: Alert, Oriented x3, Cooperative, No acute distress - Head Head exam: Normal inspection - Eye Eye exam: Normal appearance, PERRL Pupils: Normal accommodation - ENT ENT exam: Normal exam, Mucous membranes moist, Normal external ear exam, Normal orophraynx, TM's normal bilaterally Ear exam: Normal external inspection. negative: External canal tenderness Nasal Exam: Normal inspection. negative: Discharge, Sinus tenderness Mouth exam: Normal external inspection, Tongue normal Teeth exam: Normal inspection. negative: Dental caries Throat exam: Normal inspection. negative: Tonsillar erythema, Tonsillar exudate - Neck Neck exam: Normal inspection, Full ROM. negative: Tenderness - Respiratory Respiratory exam: Normal lung sounds bilaterally. negative: Respiratory distress - Cardiovascular Cardiovascular Exam: Regular rate, Normal rhythm, Normal heart sounds Peripheral Pulses: 3+: Radial (R), Radial (L), Dorsalis Pedis (R), Dorsalis Pedis (L) - GI/Abdominal GI/Abdominal exam: Soft, Normal bowel sounds. negative: Tenderness - Rectal Rectal exam: Deferred - exam: Deferred - Extremities Extremities exam: Full ROM, Normal capillary refill, Tenderness, Other (redness of right elbow) - Back Back exam: Reports: Normal inspection, Full ROM. Denies: Muscle spasm, Rash noted, Tenderness - Neurological Neurological exam: Alert, Normal gait, Oriented X3, Reflexes normal - Psychiatric Psychiatric exam: Normal affect, Normal mood - Skin Skin exam: Dry, Intact, Normal color, Warm Assessment and Plan - Assessment and Plan (1) Cellulitis of right elbow Current Visit: Yes Status: Acute Base Code: L03.113 - CELLULITIS OF RIGHT UPPER LIMB Comment: 03/17/19: - Swelling, tenderness of the right olecronon process much improved. Still repor ting stiffness of the elbow joint. Xray of the right elbow ordered. - WBCs 15K, --> 10 CRP 15.1 - Failed outpatient treatment with IV/PO Clindamycin. - Discontinued Unasyn 3g IV Q6H and change to Doxycycline 100mg BID to be continued for 9 more days at discharge. Tylenol 650mg for pain/fever. - Wound culture: non-diagnostic due to possible compromise of cx result and insufficinet specimen. 5-10 WBCs present. (2) BPH (benign prostatic hyperplasia) Current Visit: Yes Status: Chronic Base Code: N40.0 - BENIGN PROSTATIC HYPERPLASIA WITHOUT LOWER URINRY TRACT SYMP Comment: 03/17/19: - Resume Flomax 0.4mg QD. (3) HTN (hypertension) Current Visit: Yes Status: Chronic Qualifiers: Hypertension type: essential hypertension Qualified Code(s): I10 - Essential (primary) hypertension Base Code: I10 - ESSENTIAL (PRIMARY) HYPERTENSION Comment: 03/17/19: - Well controlled. - Resume HCTZ 25mg, Losartan 00mg QD. (4) RLS (restless legs syndrome) Current Visit: Yes Status: Acute Base Code: G25.81 - RESTLESS LEGS SYNDROME Comment: 03/17/19: - Resume Pramipexole 0.75mg QHS. (5) DVT prophylaxis Current Visit: Yes Status: Acute Base Code: Z29.9 - ENCOUNTER FOR PROPHYLACTIC MEASURES, UNSPECIFIED Comment: 03/17/19: - Lovenox 40mg sq daily. (6) Patient is full code Current Visit: Yes Status: Acute Base Code: Z78.9 - OTHER SPECIFIED HEALTH STATUS Comment: 03/17/19: - The patient is full code. - Disposition Disposition: Possible D/C home today Results - Labs Result Diagrams: 03/17/19 06:20 Labs Last 24 Hours: Laboratory Results - last 24 hr 03/17/19 06:20 WBC 10.0 RBC 4.30 L Hgb 13.0 L Hct 38.9 L MCV 90.5 MCH 30.2 MCHC 33.4 RDW 13.1 Plt Count 231 MPV 10.3 Gran % 69.3 Lymphocytes % 20.5 Monocytes % 8.3 Eosinophils % 1.6 Basophils % 0.3 Absolute Neutrophils 6.95 DVT/PE Assessment - Risk for VTE Risk for VTE: No Risk Level: Moderate Risk Assessment Date: 03/16/19 Risk Assessment Time: 09:29 VTE Orders Placed or Will Be Placed: Yes - Active Medicaitons Current Medications: Current Medications Acetaminophen (Tylenol 325mg) 650 mg PO Q6H PRN PRN Reason: PAIN - MILD(1-4)/FEVER Last Admin: 03/16/19 22:03 Dose: 650 mg Documented by: Al Hydroxide/Mg Hydroxide (Maalox) 30 ml PO Q4H PRN PRN Reason: GI UPSET Doxycycline Hyclate (Vibramycin) 100 mg PO BID [facility] Enoxaparin Sodium (Lovenox) 40 mg SC DAILY [facility] Last Admin: 03/16/19 11:01 Dose: 40 mg Documented by: Hydrochlorothiazide (Hctz 25mg) 25 mg PO QHS [facility] Last Admin: 03/16/19 22:06 Dose: 25 mg Documented by: [facility] Last Admin: 03/16/19 22:03 Dose: 100 mg Documented by: Pramipexole Dihydrochloride (Pramipexole Dihydrochloride) 0.75 mg PO QHS [facility] Last Admin: 03/16/19 21:59 Dose: 0.75 mg Documented by: Simvastatin (Zocor) 20 mg PO QHS [facility] Last Admin: 03/16/19 22:00 Dose: 20 mg Documented by: Tamsulosin [facility] ([facility]omax) [facility] Last Admin: 03/16/19 21:59 Dose: 0.4 mg Documented by: AMI Plan - Labs Result Diagrams: 03/17/19 06:20
[2019-03-17] MEDS: ENOXAPARIN 40 MG/0.4 ML SYR SC SCH (10:46)
--- NOTE | 2019-03-17 11:10 | Discharge Summary ---
Providers Discharge Summary Date: 03/17/19 Date of admission: 03/15/19 17:04 Attending physician: MANI SANCHEZ Primary care physician: DEO GOOD D.O. Physical Exam - Vital Signs Vital Signs: Vital Signs - Last 24 Hrs Temp Pulse Resp BP Pulse Ox 03/17/19 08:08 20 03/17/19 07:25 98.8 F 69 18 129/70 96 03/16/19 23:42 98.8 F 72 18 120/56 94 L 03/16/19 17:00 99.8 F H 71 16 122/70 99 - General General Appearance: Alert, Oriented x3, Cooperative, No acute distress - Head Head exam: Normal inspection - Eye Eye exam: Normal appearance, PERRL Pupils: Normal accommodation - ENT ENT exam: Normal exam, Mucous membranes moist, Normal external ear exam, Normal orophraynx, TM's normal bilaterally Ear exam: Normal external inspection. negative: External canal tenderness Nasal Exam: Normal inspection. negative: Discharge, Sinus tenderness Mouth exam: Normal external inspection, Tongue normal Teeth exam: Normal inspection. negative: Dental caries Throat exam: Normal inspection. negative: Tonsillar erythema, Tonsillar exudate - Neck Neck exam: Normal inspection, Full ROM. negative: Tenderness - Respiratory Respiratory exam: Normal lung sounds bilaterally. negative: Respiratory distress - Cardiovascular Cardiovascular Exam: Regular rate, Normal rhythm, Normal heart sounds Peripheral Pulses: 3+: Radial (R), Radial (L), Dorsalis Pedis (R), Dorsalis Pedis (L) - GI/Abdominal GI/Abdominal exam: Soft, Normal bowel sounds. negative: Tenderness - Rectal Rectal exam: Deferred - exam: Deferred - Extremities Extremities exam: Full ROM, Normal capillary refill, Tenderness, Other (redness of right elbow) - Back Back exam: Reports: Normal inspection, Full ROM. Denies: Muscle spasm, Rash noted, Tenderness - Neurological Neurological exam: Alert, Normal gait, Oriented X3, Reflexes normal - Psychiatric Psychiatric exam: Normal affect, Normal mood - Skin Skin exam: Dry, Intact, Normal color, Warm Hospitalization - Hospitalization Admission Diagnosis: cellulitis of right arm, failed outpatient therapy - Problem List/Discharge Diagnosis (1) Cellulitis of right elbow Current Visit: Yes Status: Acute Base Code: L03.113 - CELLULITIS OF RIGHT UPPER LIMB Comment: 03/17/19: - Swelling, tenderness of the right olecronon process much improved. Still reporting stiffness of the elbow joint. Xray of the right elbow ordered. - WBCs 15K, --> 10 CRP 15.1 - Failed outpatient treatment with IV/PO Clindamycin. - Discontinued Unasyn 3g IV Q6H and change to Doxycycline 100mg BID to be continued for 9 more days at discharge. Tylenol 650mg for pain/fever. - Wound culture: non-diagnostic due to possible compromise of cx result and insufficinet specimen. 5-10 WBCs present. - Elbow xray: no acute fracture, no joint effusion. (2) BPH (benign prostatic hyperplasia) Current Visit: Yes Status: Chronic Base Code: N40.0 - BENIGN PROSTATIC HYPERPLASIA WITHOUT LOWER URINRY TRACT SYMP Comment: 03/17/19: - Resume Flomax 0.4mg QD. (3) HTN (hypertension) Current Visit: Yes Status: Chronic Discharge Diagnosis: Hypertension type: essential hypertension Qualified Code(s): I10 - Essential (primary) hypertension Base Code: I10 - ESSENTIAL (PRIMARY) HYPERTENSION Comment: 03/17/19: - Well controlled. - Resume HCTZ 25mg, Losartan 00mg QD. (4) RLS (restless legs syndrome) Current Visit: Yes Status: Acute Base Code: G25.81 - RESTLESS LEGS SYNDROME Comment: 03/17/19: - Resume Pramipexole 0.75mg QHS. (5) DVT prophylaxis Current Visit: Yes Status: Acute Base Code: Z29.9 - ENCOUNTER FOR PROPHYLACTIC MEASURES, UNSPECIFIED Comment: 03/17/19: - Lovenox 40mg sq daily. (6) Patient is full code Current Visit: Yes Status: Acute Base Code: Z78.9 - OTHER SPECIFIED HEALTH STATUS Comment: 03/17/19: - The patient is full code. - Disposition Possible D/C home today - Hospitalization Course Hospital Course: Mr. Hastings is a 73 y/o male here with complaint of right elbow swelling and pain. The patient initially came to [facility] ED on Wednesday and fluid was taken from the elbow he was given IV antibiotics and sent home on oral antibiotics for cellulitis of the right forearm. The patient states that he scraped himself on the armrest of his tractor and his elbow became red and swollen thereafter. He return yesterday afternoon with his symptoms unresolved and was admitted for failed outpatient antibiotic therapy. Vitals on admission BP 139/73 HR 72 T 98.6 O2 sats % 97 % RA, RR 16 WBCs 15K, CRP 15.1 03/17: Patient improved with IV doses of Unasyn 3gm Q6H, with WBC 10, afebrile, wound culture non-diagnostic. Changed to oral Doxycycline 100mg BID for another nine days and instructed to use warm compresses and Tylenol for pain. PCP: Dr. Deo Good Procedures: Imaging and X-Rays 03/17/19 09:50 ELBOW, RIGHT 2 VIEWS [RAD] Urgent Abnormal Labs: Abnormal Lab Results 03/15/19 03/15/19 03/17/19 Range/Units 16:10 16:10 06:20 WBC 15.0 H (4.2-12.2) K/uL RBC 4.30 L (4.40-5.70) M/uL Hgb 13.5 L 13.0 L (14.0-18.0) gm/dl Hct 40.1 L 38.9 L (42.0-52.0) % Neutrophils % 81.0 H (47-80) % Lymphocytes 14.0 L (16-45) % C-Reactive Protein 15.12 H (<0.5) mg/dL Condition at Discharge: (2) Stable Discharge Medications - Discharge Medications Prescriptions: Acetaminophen [Tylenol] 500 mg PO TID #20 capsule Doxycycline Hyclate [Vibramycin] 100 mg PO BID 9 Days #19 capsule Home Medications: Ambulatory Orders Tamsulosin HCl [Flomax] 0.4 mg PO QHS 10/02/15 [Last Taken 03/15/19] Pramipexole Di-HCl [Pramipexole Dihydrochloride] 0.75 mg PO DAILY 09/21/17 [Last Taken 03/15/19] Losartan/Hydrochlorothiazide [Losartan-Hctz 100-25 mg Tab] 1 each PO DAILY 07/22/18 [Last Taken 03/15/19] Pravastatin Sodium [Pravachol] 40 mg PO DAILY 03/14/19 [Last Taken 03/15/19] Acetaminophen [Tylenol] 500 mg PO TID #20 capsule 03/17/19 [Last Taken Unknown] Doxycycline Hyclate [Vibramycin] 100 mg PO BID 9 Days #19 capsule 03/17/19 [Last Taken Unknown] Discharge Plan - Discharge Instructions Diet at Discharge: Low Salt Diet Instructions: Cellulitis (DC) Additional Instructions: Medications: - Take Doxycycline 100mg twice daily for the next 9 days. - Use Tylenol 500mg three times daily as needed for pain and swelling. - Apply warm compresses to help with swelling. Diet and activity as tolerated Return to the Ed if getting worse. Follow up appointment with Dr. Good March 22 at 12:30pm. . Quality Measures - Quality Measures Quality Measures: Advance Directives, Documentation of Current Medications in Medical Record, Elder Maltreatment Screen and Follow-Up Plan, Screening for High Blood Pressure and F/U Documented - Current Medications Quality Measure: Measure #130: Documentation of Current Medications Documentation of Current Medications: <Current Medications Documented/Reviewed> [G8427] - Blood Pressure Screening Quality Measure: Screening for High Blood Pressure and Follow-Up Documented Does Patient Have Any of the Following: Active Dx of HTN Blood Pressure Classification: Pre-Hypertensive BP Reading Systolic Measurement: 121 Diastolic Measurement: 72 Screening for High Blood Pressure: Patient Exclusion, Hx of HTN [G9744] - Advance Directives Quality Measure: Measure #47: Care Plan Advance Directives Established: No Advance Directives Information Provided To Patient: Declined Advance Directives on File: No Living Will: No Power of Editor & Co Founder: No Advance Care Planning: <Care Plan/Decision Maker Documented; Discussed & Documented> [1124X] - Elder Abuse Suspicion Index Screening: Elder Abuse Suspicion Index Screening Rely on people for bathing, dressing, shopping, banking, etc: No Prevented from getting food, clothes, medication, etc: No Made to feel shamed or threatened by someone: No Forced to sign papers or use money against will: No Feel afraid, touched in ways not wanted or hurt physically: No Poor eye contact, withdrawn, malnourished, cuts or bruises: No Screening Result: Negative result EASI Reference Information: Marj DOAN, Landon Liao, Tea D, Damon Foster.Development and validation of a tool to assist physicians identification of elder abuse: The Elder Abuse Suspicion Index (EASI ). Journal of Elder Abuse and Neglect, 2008; 20 (3): 276-300. - Elder Maltreatment Screen Quality Measures: Elder Maltreatment Screen and Follow-Up Plan Elder Maltreatment Screen: <Negative, No Follow-Up Plan Required> [G9612]
--- NOTE | 2019-03-20 06:21 | RADIOLOGY REPORT ---
EXAM: ELBOW, RIGHT 2 VIEWS HISTORY: PAIN AND SWELLING IN OLECRANON REGION. OLECRANON BURSITIS. TECHNIQUE: AP and lateral views of the right elbow. COMPARISON: None. ENCOUNTER: Initial. FINDINGS: There is normal bone mineralization. No acute fracture nor dislocation. There are mild degenerative changes of the medial compartment. On the lateral view, there is an ossific density projecting just anterior to the distal humerus measuring 10 x 9 mm. This may represent a loose body. There is spurring at the triceps tendon insertion on the olecranon. There is mild to moderate dorsal soft tissue swelling. This can be seen with olecranon bursitis. IMPRESSION: 1. NO ACUTE FRACTURE NOR DISLOCATION. 2. POSSIBLE LOOSE BODY WITHIN THE ANTERIOR JOINT COMPARTMENT MEASURING 10 X 9 MM. 3. MILD TO MODERATE SOFT TISSUE SWELLING DORSALLY. THIS CAN BE SEEN WITH OLECRANON BURSITIS. JOB NUMBER: [id number] MTDD
== END 2019-03-17 12:30 | disposition home or self-care (01) | DRG 603 ==
LOC: ER 15:07 → MEDSURG 17:04
PROVIDERS: ADMIT Internal Medicine; ATTEND Internal Medicine
DX: L03.113 Cellulitis of right upper limb (principal); Z16.30 Resistance to unspecified antimicrobial drugs; I10 Essential (primary) hypertension; N40.0 Benign prostatic hyperplasia without lower urinary tract symptoms; M19.90 Unspecified osteoarthritis, unspecified site; G25.81 Restless legs syndrome
CPT/HCPCS: 86140; 85027; J0295; 85025; 96365; 99223; 99239; 99285; J1650

== ENCOUNTER 2019-07-14 08:59 | Emergency (ER) | payer MEDICARE ==
--- NOTE | 2019-07-14 10:04 | Emergency Department Record ---
History of Present Illness - General Chief complaint: Pain Stated complaint: HIP PAIN Time Seen by Provider: 07/14/19 09:55 Source: Patient Mode of Arrival: Ambulatory Limitations: No limitations - History of Present Illness Initial comments: pt is c/o l hip pain for a week. it is primarily over his flank, si joint. it gets better when he lays still. he denies numbness currently and no problems with bowel or bladder. he is pacing the room Onset/Timin -: Week(s) Location: Left, Other History of Same: No Radiation: None Severity scale (1-10): 8 Quality: Aching Consistency: Constant Improves with: Nothing Worsens with: Other Associated Symptoms: Denies other symptoms - Related Data Previous Rx's Medication Instructions Recorded Acetaminophen [Tylenol] 500 mg PO TID #20 capsule 03/17/19 Cyclobenzaprine HCl [Flexeril] 10 mg PO TID #14 tablet 07/14/19 Hydrocodone/APAP 5/325Mg [[place] 1 each PO Q6H #7 tab 07/14/19 5Mg/325Mg] Ibuprofen [Motrin 600Mg] 600 mg PO Q6H #20 tablet 07/14/19 Allergies Allergy/AdvReac Type Severity Reaction Status Date / Time No Known Drug Allergies Allergy Verified 03/15/19 15:18 Travel Screening - Travel/Exposure Within Last 30 Days Have you traveled within the last 30 days?: No Review of Systems Reviewed: No additional complaints except as noted below Constitutional: Reports: As per HPI. Denies: Chills, Fever, Malaise, Night sweats, Weakness, Weight change Eyes: Reports: As per HPI. Denies: Eye discharge, Eye pain, Photophobia, Vision change ENT: Reports: As per HPI. Denies: Congestion, Dental pain, Ear pain, Epistaxis, Hearing loss, Throat pain Respiratory: Reports: As per HPI. Denies: Cough, Dyspnea, Hemoptysis, Stridor, Wheezes Cardiovascular: Reports: As per HPI. Denies: Arrhythmia, Chest pain, Dyspnea on exertion, Edema, Murmurs, Orthopnea, Palpitations, Paroxysmal nocturnal dyspnea, Rheumatic Fever, Syncope Endocrine: Reports: As per HPI. Denies: Fatigue, Heat or cold intolerance, Polydipsia, Polyuria Gastrointestinal: Reports: As per HPI. Denies: Abdominal pain, Constipation, Diarrhea, Hematemesis, Hematochezia, Melena, Nausea, Vomiting Genitourinary: Reports: As per HPI. Denies: Dysuria, Frequency, Hematuria, Incontinence, Retention, Testicular pain, Testicular mass, Urgency Musculoskeletal: Reports: As per HPI. Denies: Arthralgia, Back pain, Gout, Joint swelling, Myalgia, Neck pain Skin: Reports: As per HPI. Denies: Bruising, Change in color, Change in hair/nails, Lesions, Pruritus, Rash Neurological: Reports: As per HPI. Denies: Abnormal gait, Confusion, Headache, Numbness, Paresthesias, Seizure, Tingling, Tremors, Vertigo, Weakness Psychiatric: Reports: As per HPI. Denies: Anxiety, Auditory hallucinations, Depression, Homicidal thoughts, Suicidal thoughts, Visual hallucinations Hematological/Lymphatic: Reports: As per HPI. Denies: Anemia, Blood Clots, Easy bleeding, Easy bruising, Swollen glands Past Medical History - SOCIAL HISTORY Smoking Status: Never smoker - RESPIRATORY Hx Respiratory Disorders: Yes Hx Bronchitis: Yes Hx Sleep Apnea: Yes Hx of CPAP: Yes (uses on and off) - CARDIOVASCULAR Hx Cardio Disorders: No - NEURO Hx Neuro Disorders: No Comment:: brain aneurysm - GI Hx GI Disorders: Yes Hx Abdominal Pain: Yes - Hx Genitourinary Disorders: Yes Hx Bladder Problem: Yes Hx Prostate Problems: Yes - ENDOCRINE Hx Endocrine Disorders: No - MUSCULOSKELETAL Hx Musculoskeletal Disorders: Yes Hx Arthritis: Yes - PSYCH Hx Psych Problems: No - HEMATOLOGY/ONCOLOGY Hx Hematology/Oncology Disorders: No Family Medical History Any Significant Family History?: Yes Hx Cancer: Mother Hx Diabetes: Mother Hx HTN: Father Physical Exam - General General Appearance: Alert, Oriented x3, Cooperative, Mild distress - Head Head exam: Normal inspection - Eye Eye exam: Normal appearance, PERRL, EOMI Pupils: Normal accommodation - ENT ENT exam: Normal exam, Mucous membranes moist, Normal external ear exam, Normal orophraynx Ear exam: Normal external inspection. negative: External canal tenderness Nasal Exam: Normal inspection. negative: Discharge, Sinus tenderness Mouth exam: Normal external inspection, Tongue normal Teeth exam: Normal inspection. negative: Dental caries Throat exam: Normal inspection. negative: Tonsillar erythema, Tonsillar exudate - Neck Neck exam: Normal inspection, Full ROM. negative: Tenderness - Respiratory Respiratory exam: Normal lung sounds bilaterally. negative: Respiratory distress - Cardiovascular Cardiovascular Exam: Regular rate, Normal rhythm, Normal heart sounds - GI/Abdominal GI/Abdominal exam: Soft, Normal bowel sounds. negative: Tenderness - Rectal Rectal exam: Deferred - exam: Deferred - Extremities Extremities exam: Normal inspection, Full ROM, Normal capillary refill. negative: Tenderness - Back Back exam: Reports: Muscle spasm, Tenderness (over si joint l). Denies: Full ROM, Rash noted - Neurological Neurological exam: Alert, CN II-XII intact, Normal gait, Oriented X3 - Psychiatric Psychiatric exam: Normal affect, Normal mood - Skin Skin exam: Dry, Intact, Normal color, Warm Course Vital Signs 07/14/19 09:08 Temperature 98.1 F Pulse Rate 79 Respiratory 20 Rate Blood Pressure 149/90 Pulse Ox 97 - Reevaluation(s) Reevaluation #1: 07/14/19 11:29 pt feels better Disposition Disposition: Discharge Clinical Impression: Radiculopathy Qualifiers: Spinal region: lumbosacral Qualified Code(s): M54.17 - Radiculopathy, lumbosacral region Disposition: Home, Self-Care Condition: (1) Good Instructions: Lumbar Radiculopathy (ED) Additional Instructions: follow up with family doctor. return sooner if worse. no lifting more then 5lbs for 5 days. moist heat to area Prescriptions: Cyclobenzaprine HCl [Flexeril] 10 mg PO TID #14 tablet Ibuprofen [Motrin 600Mg] 600 mg PO Q6H #20 tablet Hydrocodone/APAP 5/325Mg [[place] 5Mg/325Mg] 1 each PO Q6H #7 tab Forms: Patient Portal Access Quality - Quality Measures Quality Measures: N/A - Blood Pressure Screening Does Patient Have Any of the Following: Active Dx of HTN Blood Pressure Classification: Hypertensive Reading Systolic Measurement: 149 Diastolic Measurement: 90 Screening for High Blood Pressure: Patient Exclusion, Hx of HTN [G9744]
[2019-07-14] MEDS ORDERED: KETOROLAC 30 MG/ML VIAL IM ONE (10:06)
[2019-07-14] MEDS ORDERED: ORPHENADRINE CITRATE 60MG/2ML VIAL IM ONE (10:06)
--- NOTE | 2019-07-14 10:17 | RADIOLOGY REPORT ---
EXAMINATION: Left Hip Minimum Two Views EXAM DATE: 07/14/2019 10:05 AM TECHNIQUE: AP pelvis and left frog leg lateral hip views INDICATION: left hip pain COMPARISON: None ENCOUNTER: Initial FINDINGS: There is no bone or joint abnormality. IMPRESSION: Within normal limits. Dictated by: Jorge Ren DO on 07/14/2019 10:14 AM. .
--- NOTE | 2019-07-14 11:22 | CT SCAN REPORT ---
EXAMINATION: CT Abdomen and Pelvis without IV Contrast EXAM DATE: 07/14/2019 11:03 AM TECHNIQUE: Standard protocol CT imaging of the abdomen and pelvis was performed without intravenous c ontrast. INDICATION: pain in l flank COMPARISON: CTA chest June 19, 2010 ENCOUNTER: Not applicable CT ABDOMEN AND PELVIS FINDINGS: Lung Bases: Mild to moderate bibasilar dependent atelectasis. There is a 6 mm nodule at the posterola teral periphery of the right lower lobe not significantly changed and regarded as benign. Small to mo derate hiatal hernia has increased in the interval. Hepatobiliary: The liver has a normal size with a smooth surface. There is no biliary dilatation and the gallbladder is unremarkable. Pancreas: The pancreas is normal. Spleen: The spleen is not enlarged. Adrenals: The adrenal glands are normal. Kidneys, Ureters, & Bladder: Bilateral renal cysts have mildly increased in size within the interpola r level right renal cyst now measuring 4.3 x 4.8 cm. Exophytic posterior interpolar level right renal cyst currently measures 4.4 x 3.5 cm. Anterior exophytic left lower pole renal cyst currently measur es 5.0 x 5.7 cm. Lower pole left renal cyst measures 2.6 cm diameter. No renal calculi are present.. No hydronephrosis. Both ureters have a normal course and caliber and the urinary bladder a normal mor phology and uniform wall thickness. No ureteral or bladder calculi are identified. Gastrointestinal: The stomach and small bowel are normal with no obstruction or inflammation. The wood endix is normal. There is mild diverticular disease involving primarily the left colon and sigmoid se gment with no associated inflammation. The large bowel is otherwise unremarkable. Reproductive Organs: Moderate prostate enlargement. Lymphatic System: There is no adenopathy within the abdomen or pelvis. Vasculature: Normal caliber abdominal aorta with mild atherosclerotic disease. Peritoneum: No free fluid, free air, or inflammation Abdominal wall & Musculoskeletal: No suspicious bone lesions. In the right space of Retzius there is a focal area of low-attenuation measuring 2.7 x 2.1 cm likely relating to focal scar from prior right inguinal hernia repair. Please correlate with surgical history. Degenerative changes of lumbar spine . Assessment of the solid organs, soft tissues, and vascular structures is overall limited on noncontra st imaging, IMPRESSION: 1. The same bilateral renal cysts are present however have mildly increased in size compared to the p rior study. 2. No evidence of nephrolithiasis or obstructive uropathy. 3. Moderate prostate enlargement. 4. Small to moderately sized hiatal hernia has increased. 5. Mild diverticulosis of the sigmoid colon. No acute diverticulitis features. Dictated by: Jorge Ren DO on 07/14/2019 11:08 AM. .
--- NOTE | 2019-07-14 12:36 | CT SCAN REPORT ---
EXAMINATION: CT Head without IV Contrast EXAM DATE: 07/14/2019 12:22 PM TECHNIQUE: Standard protocol CT images of the head were obtained without intravenous contrast. Bravo l and sagittal reconstructed images were created. INDICATION: Vertigo, headache COMPARISON: CT head 07/22/2018 HAND DOMINANCE: Unknown. ENCOUNTER: Not applicable FINDINGS: 1. No intracranial mass effect, shift of midline structures, intra-axial or extra-axial hemorrhage, o r other extra-axial fluid collections. 2. Brain volume and ventricular size are appropriate for patient's stated age. No ventricular outflow obstruction. 3. Brambila-white matter differentiation is preserved. No sulcal effacement. No suspicious areas of alter ed attenuation. 4. Midline structures and craniocervical junction are unremarkable. 5. Intracranial calcified atherosclerotic disease in the carotid siphons. 6. No depressed or widely calvarial fractures. No aggressive calvarial lesions. 7. Patchy mucosal thickening of the paranasal sinuses with opacification of left more than right ethm oid air cells, mildly progressed since prior study. Temporal bone structures are well aerated. Unrema rkable appearance of the orbital compartments. IMPRESSION: No acute intracranial abnormality to the limits of noncontrast CT technique. Consider further evaluat ion with MRI as clinically warranted. Paranasal sinus opacification; correlate clinically for signs and symptoms of acute sinusitis. Dictated by: Bing Hopkins MD on 07/14/2019 12:26 PM. .
== END 2019-07-14 13:11 | disposition home or self-care (01) ==
LOC: ER 08:59
DX: M54.17 Radiculopathy, lumbosacral region (principal); M25.552 Pain in left hip; R51 Headache; R11.0 Nausea
CPT/HCPCS: 99284 ×2; 96372; 73502; 70450; 74176; J1885; J2360